=== PATIENT | male | born 1970 | race Caucasian/White ===

== ENCOUNTER → 2016-07-20 | Day surgery (SDC) | payer OTHER, SELFPAY ==
[~2016-07-20] MED LIST: NORCO 5-325 TA1 EACH PO
== END | disposition home or self-care (01) ==
LOC: OR 09:45
PROVIDERS: Orthopaedic Surgery
PROC: 0LB80ZZ Excision of Left Hand Tendon, Open Approach (ICD-10-PCS; principal; 2016-07-20 11:30)
DX: M67.442 Ganglion, left hand (principal); F17.210 Nicotine dependence, cigarettes, uncomplicated; Z86.73 Personal history of transient ischemic attack (TIA), and cerebral infarction without residual deficits; Z85.831 Personal history of malignant neoplasm of soft tissue; Z88.8 Allergy status to other drugs, medicaments and biological substances
CPT/HCPCS: 93005; J2250; J3010; J7030; J7120

== ENCOUNTER 2021-11-13 18:05 | Emergency (ER) | payer MEDICAID ==
[2021-11-13 19:16] LABS: HEMOGLOBIN 15.7 gm/dl (14.0-17.5); RED BLOOD COUNT 4.69 M/UL (4.20-5.50); WHITE BLOOD COUNT 23.6 K/UL (4.5-11.0)
[2021-11-13 19:49] LABS: BUN/CREATININE RATIO 25 (0-10)
== END 2021-11-14 10:56 | disposition short-term general hospital (02) ==
LOC: ER1 18:05
PROVIDERS: Nurse Practitioner
DX: A41.9 Sepsis, unspecified organism (principal); J86.9 Pyothorax without fistula; E87.1 Hypo-osmolality and hyponatremia; F17.200 Nicotine dependence, unspecified, uncomplicated; Z88.6 Allergy status to analgesic agent; Z20.822 Contact with and (suspected) exposure to COVID-19
CPT/HCPCS: 36600; 71260; 80053; 81001; 82550; 82553; 82803; 83605; 83880; 84439; 84443; 84484; 85025; 87040; 93005; 96374; 96375; 99285; J0696; J3370; J7030; Q9967; U0002

== ENCOUNTER → 2021-11-13 | Outpatient (CLI) | payer MEDICAID | LOC: RAD 14:41 | DX: R06.02 Shortness of breath (principal); J94.8 Other specified pleural conditions | CPT/HCPCS: 71046 ==